=== PATIENT | male | born 1975 | race Caucasian/White ===

== ENCOUNTER 2018-11-20 22:43 | Emergency (ER) | payer BC, OTHER ==
[2018-11-20] MEDS: KETOROLAC 30 MG INJ IM (23:27)
[2018-11-20] MEDS: DEXAMETHASONE 10 MG/ML 1 ML INJ IM (23:27)
== END 2018-11-20 23:43 | disposition home or self-care (01) ==
LOC: FTE 22:43
DX: M62.830 Muscle spasm of back (principal)
CPT/HCPCS: 96372; 99284-25